=== PATIENT | male | born 1945 | race Caucasian/White ===

== ENCOUNTER 2021-01-31 07:39 | Day surgery (SDC) | payer OTHER, SELFPAY ==
[2021-01-25 11:10] VITALS: BMI 34.9
[2021-01-25 13:36] VITALS: BMI 34.9
--- NOTE | 2021-01-30 08:28 | HO.ANESPROP2 ---
Documented by User: Luisa Lyn 01/30/21 08:29 HPI - Anesthesia Eval Consult details Narrative: 75yo M for Colonoscopy Eliquis for afib PMFSH Past Medical History Medical History Arrhythmia COVID-19 vaccine administered Depression History of MRSA infection HTN (hypertension) Surgical History Surgical History H/O colonoscopy History of arthroscopy of right knee Hx of shoulder surgery Social History Social History Are you a primary prompt care rn to a significant other at home: No Do you presently have visiting nurse or other home services: No Alcohol intake: current Alcohol intake frequency: 0-2 drinks per day Smoking Status: Former smoker Smoking Quit Date: 1976 Use of substances other than those prescribed or required for medical reasons: No Have you been hit, kicked, punched, or otherwise hurt by someone within the past year? If so, by whom?: No Advance Directives Information Provided: No Recently lost weight without trying: No Meds Allergies Allergy/AdvReac Type Severity Reaction Status Date / Time sulfamethoxazole Allergy Intermediate Rash Verified 01/31/21 08:37 [From Bactrim] trimethoprim [From Bactrim] Allergy Intermediate Rash Verified 01/31/21 08:37 lisinopril AdvReac Intermediate Cough Verified 01/31/21 08:37 Home Medications Medication Instructions Recorded Confirmed Last Taken Type apixaban [Eliquis] 5 mg PO BID 01/25/21 01/25/21 01/28/21 History atorvastatin 40 mg PO BEDTIME 01/25/21 01/25/21 Unknown History cyanocobalamin (vitamin B-12) 500 mcg PO DAILY 01/25/21 01/25/21 Unknown History [Vitamin B-12] gabapentin 1,200 mg PO BEDTIME 01/25/21 01/25/21 01/31/21 06:45 History gabapentin 600 mg PO QAM 01/25/21 01/25/21 Unknown History hydroxyzine pamoate 25 mg PO BEDTIME 01/25/21 01/25/21 Unknown History metoprolol tartrate 25 mg PO BID 01/25/21 01/25/21 01/31/21 06:45 History venlafaxine 150 mg PO DAILY 01/25/21 01/25/21 01/31/21 06:45 History Exam Exam Date and Time: January 30, 202128 Height,Weight and Vital Signs: Height 6 ft 5 in Weight 133.81 kg Assessment and Plan Assessment Anesthesia Assessment: Chart Reviewed Documented by User: Shruthi Villeda 01/31/21 09:26 [facility] Past Medical History Medical History Arrhythmia COVID-19 vaccine administered Depression History of MRSA infection HTN (hypertension) Surgical History Surgical History H/O colonoscopy History of arthroscopy of right knee Hx of shoulder surgery Social History Social History Are you a primary prompt care rn to a significant other at home: No Do you presently have visiting nurse or other home services: No Alcohol intake: current Alcohol intake frequency: 0-2 drinks per day Smoking Status: Former smoker Smoking Quit Date: 1976 Use of substances other than those prescribed or required for medical reasons: No Have you been hit, kicked, punched, or otherwise hurt by someone within the past year? If so, by whom?: No Advance Directives Information Provided: No Recently lost weight without trying: No Meds Allergies Allergy/AdvReac Type Severity Reaction Status Date / Time sulfamethoxazole Allergy Intermediate Rash Verified 01/31/21 08:37 [From Bactrim] trimethoprim [From Bactrim] Allergy Intermediate Rash Verified 01/31/21 08:37 lisinopril AdvReac Intermediate Cough Verified 01/31/21 08:37 Home Medications Medication Instructions Recorded Confirmed Last Taken Type apixaban [Eliquis] 5 mg PO BID 01/25/21 01/25/21 01/28/21 History atorvastatin 40 mg PO BEDTIME 01/25/21 01/25/21 Unknown History cyanocobalamin (vitamin B-12) 500 mcg PO DAILY 01/25/21 01/25/21 Unknown History [Vitamin B-12] gabapentin 1,200 mg PO BEDTIME 01/25/21 01/25/21 01/31/21 06:45 History gabapentin 600 mg PO QAM 01/25/21 01/25/21 Unknown History hydroxyzine pamoate 25 mg PO BEDTIME 01/25/21 01/25/21 Unknown History metoprolol tartrate 25 mg PO BID 01/25/21 01/25/21 01/31/21 06:45 History venlafaxine 150 mg PO DAILY 01/25/21 01/25/21 01/31/21 06:45 History Exam Airway Mallampati Class: II TM Dist: >3cm Neck ROM: Full Loose/Missing/Broken Teeth: No Heart: RRR Lungs: CTA Assessment and Plan Assessment Anesthesia Assessment: Anesthesia Plan Discussed and Chart Reviewed Final Anesthetic Review NPO: Yes ASA Class: III Final Preanesthetic Review: Meds/Allgs Chart Reviewed, Consent Obtained/Reviewed and Anes Risks/Benef Reviewed Patient Risk: Intermediate Procedure Risk: Low Anesthetic Plan Anesthetic Plan: MAC: Disposition: Standard PACU
[2021-01-31 08:39] VITALS: BP 132/86; PULSE 90; RESP 18; TEMP 36.7; O2SAT 96
[2021-01-31] MEDS: Lactated Ringers 1,000 ML 100 ML IVCONT (08:57)
--- NOTE | 2021-01-31 09:18 | MHC.SHP ---
Pre-Procedural Eval Section A The patient is an INPATIENT: No Changes since office visit: No Cold of Flu in the past 2 weeks, No New Medical Problems, No Changes in Medication and No Patient answered all questions The History & Physical has been completed within 30 days and I have reviewed it.: Yes Section B Chief Complaint: screening Allergies: Allergies Allergy/AdvReac Type Severity Reaction Status Date / Time sulfamethoxazole Allergy Intermediate Rash Verified 01/31/21 08:37 [From Bactrim] trimethoprim [From Bactrim] Allergy Intermediate Rash Verified 01/31/21 08:37 lisinopril AdvReac Intermediate Cough Verified 01/31/21 08:37 Plan I have reviewed the history and physical and performed a pertinent physical examination on my patient. No changes have occurred unless specified.
[2021-01-31 10:07] VITALS: BP 111/74; PULSE 78; RESP 18; TEMP 36.1; O2SAT 100
--- NOTE | 2021-01-31 10:11 | PM.OP ---
Brief Operative Note Date of Service: 01/31/21 Pre-op diagnosis: screening Post-op diagnosis: same (colon polyps) Surgeon: Cecilio Monte Anesthesia: MAC Estimated blood loss (mL): 3 Pathology: other (polyps) Condition: stable Disposition: PACU
[2021-01-31 10:21] VITALS: BP 140/93; PULSE 82; RESP 20; O2SAT 98
--- NOTE | 2021-01-31 10:34 | OP_ITS ---
SURGEON: Cecilio Monte MD INDICATIONS: Colon cancer screening and personal history of colon polyps. PREOPERATIVE DIAGNOSIS: POSTOPERATIVE DIAGNOSIS: PROCEDURE PERFORMED: Colonoscopy to the terminal ileum with biopsy and snare polypectomy. ESTIMATED BLOOD LOSS: COMPLICATIONS: ANESTHESIA: ASSISTANTS: SPECIMENS: MEDICATIONS: Monitored anesthesia care. DESCRIPTION OF PROCEDURE: History and physical performed. The risks and benefits of the procedure were explained to the patient. An informed consent was obtained. The patient was placed in left lateral decubitus position. A digital rectal exam was performed, it was found to be normal. The Olympus pediatric video colonoscope was introduced into the rectum and advanced to the cecum without difficulty. The cecum was identified by transillumination, palpation, and identification of ileocecal valve. Abdominal wall pressure was used to assist in advancement of the scope. FINDINGS: The terminal ileum was normal. The visualized colonic mucosa was within normal limits without evidence of masses or ulcers. Multiple polyps were identified and removed using a combination of snare polypectomy and biopsy forceps. The largest measured approximately 10 mm. These were located in the right colon x2, transverse colon x1, 65 cm, and 2 in the rectum. There was mild diverticulosis of the sigmoid. The quality of prep was good. IMPRESSION: Colon polyp. RECOMMENDATION: Follow up the biopsy results. MD AMARJIT Lay/ARPITL / [id number]
== END 2021-01-31 10:50 ==
LOC: HO.SSS 07:40
PROVIDERS: Visit Provider Internal Medicine Gastroenterology
PROC: 0DJD8ZZ Inspection of Lower Intestinal Tract, Via Natural or Artificial Opening Endoscopic (ICD-10-PCS; CPT 45378; principal; 2021-01-31 08:50)
DX: Z12.11 Encounter for screening for malignant neoplasm of colon (principal); D12.2 Benign neoplasm of ascending colon; D12.3 Benign neoplasm of transverse colon; D12.4 Benign neoplasm of descending colon; D12.8 Benign neoplasm of rectum; K57.30 Diverticulosis of large intestine without perforation or abscess without bleeding; I10 Essential (primary) hypertension; F32.9 Major depressive disorder, single episode, unspecified; Z87.891 Personal history of nicotine dependence; Z79.899 Other long term (current) drug therapy; Z86.010 Personal history of colon polyps
CPT/HCPCS: 45385; 45380; 88305

== ENCOUNTER 2024-04-07 08:26 | Day surgery (SDC) | payer OTHER, SELFPAY ==
[2024-04-03 14:53] VITALS: BMI 35.1
--- NOTE | 2024-04-06 08:57 | HO.ANESPROP2 ---
Documented by User: Luisa Lyn NP 04/06/24 08:58 HPI - Anesthesia Eval Consult details Narrative: 78yo M for Colonoscopy Eliquis for afib PMFSH Past Medical History Medical History (Updated 04/03/24 @ 14:53 by Rose Barksdale, RN) Ambulates with cane Wears partial dentures A-fib Hx of Lyme disease Arthritis History of MRSA infection Depression Arrhythmia HTN (hypertension) COVID-19 vaccine administered Surgical History Surgical History History of arthroscopy of right knee Hx of shoulder surgery H/O colonoscopy Social History Social History Are you a primary home care consultant to a significant other at home: No Do you presently have visiting nurse or other home services: No Alcohol intake: current Alcohol intake frequency: 0-2 drinks per day Patient Tobacco Use Status: Former Tobacco user Tobacco use type: Cigarette Use of substances other than those prescribed or required for medical reasons: No Have you been hit, kicked, punched, or otherwise hurt by someone within the past year? If so, by whom?: No Are you DNR?: No Advance Directives: No Advance Directives Information Provided: Yes Advance Directives on File: No Recently lost weight without trying: No Meds Allergies Allergy/AdvReac Type Severity Reaction Status Date / Time sulfamethoxazole Allergy Intermediate Rash Verified 04/03/24 14:52 [From Bactrim] trimethoprim [From Bactrim] Allergy Intermediate Rash Verified 04/03/24 14:52 lisinopril AdvReac Intermediate Cough Verified 04/03/24 14:52 Home Medications ?Medication ?Instructions ?Recorded ?Confirmed ?Last Taken ?Type apixaban 5 mg tablet (Eliquis) 5 mg PO BID 01/25/21 04/03/24 04/03/24 History cyanocobalamin (vitamin B-12) 500 500 mcg PO DAILY 01/25/21 04/03/24 Unknown History mcg tablet (Vitamin B-12) gabapentin 600 mg tablet 1,200 mg PO BEDTIME 01/25/21 04/03/24 01/31/21 06:45 History gabapentin 600 mg tablet 600 mg PO QAM 01/25/21 04/03/24 04/07/24 History hydroxyzine pamoate 25 mg capsule 25 mg PO BEDTIME 01/25/21 04/03/24 Unknown History metoprolol tartrate 25 mg tablet 25 mg PO BID 01/25/21 04/03/24 04/07/24 History venlafaxine 150 mg 150 mg PO DAILY 01/25/21 04/03/24 04/07/24 History capsule,extended release 24 hr digoxin 125 mcg (0.125 mg) tablet 125 mcg PO DAILY 04/03/24 04/03/24 04/07/24 History rosuvastatin 40 mg tablet 40 mg PO DAILY 04/03/24 04/03/24 Unknown History Exam Height,Weight and Vital Signs: Height 6 ft 4 in Weight 130.635 kg Assessment and Plan Assessment Anesthesia Assessment: Chart Reviewed Documented by User: Brenna Moore MD 04/07/24 10:18 [facility] Past Medical History Medical History (Updated 04/03/24 @ 14:53 by Rose Barksdale, RN) Ambulates with cane Wears partial dentures A-fib Hx of Lyme disease Arthritis History of MRSA infection Depression Arrhythmia HTN (hypertension) COVID-19 vaccine administered Family History Family history of problems with anesthesia: No Surgical History Surgical History History of arthroscopy of right knee Hx of shoulder surgery H/O colonoscopy History of Problems with Anesthesia: No Social History Social History Are you a primary home care consultant to a significant other at home: No Do you presently have visiting nurse or other home services: No Alcohol intake: current Alcohol intake frequency: 0-2 drinks per day Patient Tobacco Use Status: Former Tobacco user Tobacco use type: Cigarette Use of substances other than those prescribed or required for medical reasons: No Have you been hit, kicked, punched, or otherwise hurt by someone within the past year? If so, by whom?: No Are you DNR?: No Advance Directives: No Advance Directives Information Provided: Yes Advance Directives on File: No Recently lost weight without trying: No Meds Allergies Allergy/AdvReac Type Severity Reaction Status Date / Time sulfamethoxazole Allergy Intermediate Rash Verified 04/03/24 14:52 [From Bactrim] trimethoprim [From Bactrim] Allergy Intermediate Rash Verified 04/03/24 14:52 lisinopril AdvReac Intermediate Cough Verified 04/03/24 14:52 Home Medications ?Medication ?Instructions ?Recorded ?Confirmed ?Last Taken ?Type apixaban 5 mg tablet (Eliquis) 5 mg PO BID 01/25/21 04/03/24 04/03/24 History cyanocobalamin (vitamin B-12) 500 500 mcg PO DAILY 01/25/21 04/03/24 Unknown History mcg tablet (Vitamin B-12) gabapentin 600 mg tablet 1,200 mg PO BEDTIME 01/25/21 04/03/24 01/31/21 06:45 History gabapentin 600 mg tablet 600 mg PO QAM 01/25/21 04/03/24 04/07/24 History hydroxyzine pamoate 25 mg capsule 25 mg PO BEDTIME 01/25/21 04/03/24 Unknown History metoprolol tartrate 25 mg tablet 25 mg PO BID 01/25/21 04/03/24 04/07/24 History venlafaxine 150 mg 150 mg PO DAILY 01/25/21 04/03/24 04/07/24 History capsule,extended release 24 hr digoxin 125 mcg (0.125 mg) tablet 125 mcg PO DAILY 04/03/24 04/03/24 04/07/24 History rosuvastatin 40 mg tablet 40 mg PO DAILY 04/03/24 04/03/24 Unknown History Exam Airway Mallampati Class: II TM Dist: >3cm Neck ROM: Full Partial: Upper and Lower Heart: irreg Lungs: cta Assessment and Plan Assessment Anesthesia Assessment: Anesthesia Plan Discussed Final Anesthetic Review Family History of Problems with Anesthesia: No History of Problems with Anesthesia: No NPO: Yes ASA Class: III Final Preanesthetic Review: No Changes in Pt Med Stat, Meds/Allgs Chart Reviewed and Consent Obtained/Reviewed Patient Risk: Low Procedure Risk: Low Anesthetic Plan Anesthetic Plan: MAC: Disposition: Standard PACU
[2024-04-07 08:54] VITALS: BP 140/87; PULSE 87; RESP 20; TEMP 36.3; O2SAT 97
[2024-04-07] MEDS: 0.9 % Sodium Chloride 1,000 ML 100 ML IVCONT (09:20)
--- NOTE | 2024-04-07 09:29 | P.HPSUR_ITS ---
Pre-Procedural Eval Section A - 24 Hr Update-Section A only Date of Service: 04/07/24 Section B - Complete if H&P > 30 days Chief Complaint: screening Details of Present Illness: see H&P no changes Relevant Family History (Specify if Yes): No Relevant Social History: None Present Medications: see Short Stay Collaborative assessment Medical History: No relevant PMH History of Previous Operations: No relevant previous surgery Allergies: Allergies Allergy/AdvReac Type Severity Reaction Status Date / Time sulfamethoxazole Allergy Intermediate Rash Verified 04/03/24 14:52 [From Bactrim] trimethoprim [From Bactrim] Allergy Intermediate Rash Verified 04/03/24 14:52 lisinopril AdvReac Intermediate Cough Verified 04/03/24 14:52 Review of Systems Sugical H&P ROS: Negative: Constitution, Cardiovascular, Respiratory, Neurologic al, Psychiatric, Hem-Onc, Allergic/Immunologic, Gastrointestinal, Genitourinary, Musculoskeletal, Integumentary, Endocrine and Eyes/Ears/Nose/Throat Exam Surgical H&P Exam: Normal: HEENT, Normal: Heart, Normal: Lungs, Normal: Extremities, Normal: Abdomen, Normal: Skin and Normal: Neurological Plan Diagnosis/Plan: Unchanged I have reviewed the history and physical and performed a pertinent physical examination on my patient. No changes have occurred unless specified. Time Spent With Patient Time: Total time managing care of this patient today ____ minutes.
--- NOTE | 2024-04-07 09:45 | PC.NURSE ---
pt drinks daily 2 [place] daily last drink 2 days ago no s/sx withdrawals noted
[2024-04-07 11:18] VITALS: BP 110/60; PULSE 83; RESP 18; TEMP 36.4; O2SAT 93
[2024-04-07 11:33] VITALS: BP 136/68; PULSE 78; RESP 18; TEMP 36.4; O2SAT 96
--- NOTE | 2024-04-07 12:05 | OP_ITS ---
DATE OF SERVICE: 04/07/2024 SURGEON: Cecilio Monte MD INDICATIONS: Colon cancer screening and prior history of adenomatous colon polyps. PREOPERATIVE DIAGNOSIS: POSTOPERATIVE DIAGNOSIS: PROCEDURE PERFORMED: Colonoscopy to the terminal ileum with biopsy and snare polypectomy. ESTIMATED BLOOD LOSS: COMPLICATIONS: ANESTHESIA: Monitored anesthesia care. ASSISTANTS: SPECIMENS: DESCRIPTION OF PROCEDURE: A history and physical was performed. The risks and benefits of the procedure were explained to the patient and informed consent was obtained. The patient was placed in the left lateral decubitus position. A digital rectal exam was performed and was found to be normal. The Olympus pediatric video colonoscope was introduced into the rectum and advanced to the cecum. The cecum was identified by transillumination, palpation, and identification of ileocecal valve. Examination was performed and the scope was removed. He tolerated the procedure well and was returned to recovery area in stable condition. FINDINGS: The terminal ileum was normal. Visualized colonic mucosa was normal. The quality of the prep was fair with some liquid stool throughout the colon, which was washed and suctioned as best possible. Multiple polyps were present and removed with a combination of snare polypectomy and biopsy forceps. These were located in the right colon, 5 mm, right colon polyp #2, 10 mm, transverse colon polyp, 10 mm. There was mild sigmoid diverticulosis. Retroflexed examination showed small internal hemorrhoids. IMPRESSION: Colon polyps. RECOMMENDATION: Follow up the biopsy results. MD AMARJIT Lay/RELL / [id number] MTDD
== END 2024-04-07 13:03 | disposition home or self-care (01) ==
PROVIDERS: PCP General Practice; Visit Provider Internal Medicine Gastroenterology
PROC: 0DJD8ZZ Inspection of Lower Intestinal Tract, Via Natural or Artificial Opening Endoscopic (ICD-10-PCS; CPT 45378; principal; 2024-04-07 11:00)
DX: Z12.11 Encounter for screening for malignant neoplasm of colon (principal); D12.2 Benign neoplasm of ascending colon; D12.3 Benign neoplasm of transverse colon; K57.30 Diverticulosis of large intestine without perforation or abscess without bleeding; K64.8 Other hemorrhoids; Z86.010 Personal history of colon polyps; I10 Essential (primary) hypertension; I48.91 Unspecified atrial fibrillation; Z79.01 Long term (current) use of anticoagulants; Z79.899 Other long term (current) drug therapy; Z88.2 Allergy status to sulfonamides
CPT/HCPCS: 45385; 45380; 88305; J2704